=== PATIENT | female | born 1980 | race Caucasian/White ===

== ENCOUNTER → 2016-10-15 | Day surgery (SDC) | payer OTHER ==
[~2016-10-15] VITALS: Ht 165.1 cm; Wt 64.7 kg
[~2016-10-15] MED LIST: ADVAIR 250-501 EACH INH; ADVIL200 MG PO; DICLEGIS DR 101 EACH PO; DPS FOR LIBRAX1 CAP PO; FLONASE 50 MCG/16 GM NOSE; HYOSCYAMINE0.125 MG PO; LEVOTHROID (S150 MCG PO; LEVOTHROID(SY175 MCG PO; LEVSIN/SL0.125 MG PO; LOW-OGESTREL-21 EACH PO; NEXPLANON68 MG IM/SUB-Q; NORCO 5-325 MG1 TAB PO; PRENATAL CAPLE1 EACH PO; PRILOSEC40 MG PO; PROAIR RESPICL90 MCG INH; TOVIAZ8 MG PO; TYLENOL PM EX-1 EACH PO; ZANTAC (NON-FO150 MG PO; ZYRTEC10 MG PO
== END | disposition disaster alternative care site (69) ==
LOC: GPOC 10-10 09:00 → GEND 06:53 → GPOC 07:00 → GEND 09:00 → GPOC 09:00
PROC: 0DB98ZX Excision of Duodenum, Via Natural or Artificial Opening Endoscopic, Diagnostic (ICD-10-PCS; principal; 2016-10-15)
PROC: 0DBK8ZZ Excision of Ascending Colon, Via Natural or Artificial Opening Endoscopic (ICD-10-PCS; 2016-10-15)
DX: Z12.11 Encounter for screening for malignant neoplasm of colon (principal); D12.2 Benign neoplasm of ascending colon; K52.9 Noninfective gastroenteritis and colitis, unspecified; K58.9 Irritable bowel syndrome, unspecified; K21.9 Gastro-esophageal reflux disease without esophagitis; K64.8 Other hemorrhoids; E03.9 Hypothyroidism, unspecified; Z79.899 Other long term (current) drug therapy; Z90.49 Acquired absence of other specified parts of digestive tract
CPT/HCPCS: J1100; J1200; J2405; J7030

== ENCOUNTER → 2016-10-24 | Outpatient (CLI) | payer OTHER | END | disposition disaster alternative care site (69) | LOC: GRAD 11:00 | DX: R10.9 Unspecified abdominal pain (principal); K59.00 Constipation, unspecified; Z98.82 Breast implant status | CPT/HCPCS: A9541 ==

== ENCOUNTER → 2016-11-25 | Outpatient (CLI) | payer OTHER | END | disposition disaster alternative care site (69) | LOC: LGSMG 15:13 | DX: R19.7 Diarrhea, unspecified (principal) ==

== ENCOUNTER → 2016-12-28 | Outpatient (CLI) | payer OTHER | END | disposition disaster alternative care site (69) | LOC: GRAD 14:42 | DX: R06.02 Shortness of breath (principal); R53.83 Other fatigue; R79.89 Other specified abnormal findings of blood chemistry ==